=== PATIENT | male | born 1950 | race Caucasian/White ===

== ENCOUNTER 2018-08-29 15:37 | Emergency (ER) | payer MEDICARE, MEDICAID ==
[~2018-08-29] VITALS: Ht 177.8 cm; Wt 80.0 kg
[2018-08-29] MEDS ORDERED: HYDROCODONE/ACETAMINOPHEN 5/325MG TABLET PO ONE (16:30)
[2018-08-29] MEDS ORDERED: SODIUM CHLORIDE 0.9% 1,000 ML IV ONE (17:45)
[2018-08-29 19:33] VITALS: BP 128/84
== END 2018-08-29 20:37 | disposition home or self-care (01) ==
LOC: ER 15:37
DX: S20.212A Contusion of left front wall of thorax, initial encounter (principal); I10 Essential (primary) hypertension; G47.00 Insomnia, unspecified; W26.8XXA Contact with other sharp object(s), not elsewhere classified, initial encounter; Y93.89 Activity, other specified; Y92.89 Other specified places as the place of occurrence of the external cause; Y99.8 Other external cause status
CPT/HCPCS: 71101; 93005; 96360; 99284; J7030